=== PATIENT | female | born 1990 | race African-American/Black ===

== ENCOUNTER 2025-03-30 16:33 | Emergency (ER) | payer OTHER, SELFPAY ==
[2025-03-30] MEDS ORDERED: KETOROLAC 30 MG/ML INJ ONE (17:27)
[2025-03-30] MEDS ORDERED: NA CHLORIDE 0.9% 1,000 ML ONE (17:27)
[2025-03-30] MEDS ORDERED: ONDANSETRON 4 MG/2 ML VIAL ONE (17:27)
[2025-03-30 18:14] LABS: Specific Gravity 1.013 (1.005-1.030); Sqamous Epithelial <5 /HPF (None Seen); Urine Bacteria 20-50 /HPF (<20); Urine Bilirubin NEGATIVE (Negative); Urine Blood 1+ (Negative); Urine Clarity Extremely Turbid (Clear); Urine Color Light-Yellow (Yellow); Urine Crystals Unidentified Few /HPF (None Seen); Urine Culture Reflex Order NOT NEEDED; Urine Glucose NEGATIVE (Negative); Urine Ketones NEGATIVE (Negative); Urine Microscopic Reflex YN ORDER UMIC; Urine Mucus Slight /HPF (None Seen); Urine Nitrite NEGATIVE (Negative); Urine Protein TRACE (Negative); Urine RBC <5 /HPF (None Seen); Urine Urobilinogen Normal (Normal); Urine pH 6.5 (5.0-7.0)
[2025-03-30 18:46] LABS: Absolute Lymphocytes (CBC) 0.3 K/uL (0.7-4.9); Absolute Monocytes 0.3 K/uL (0.1-1.3); Absolute Neutrophil 11.7 K/uL (1.8-8.0); Basophils % 0.1 % (0-1.3); Eosinophils % 0.1 % (0-4.4); Hematocrit 28.8 % (36.0-45.0); Hemoglobin 9.7 g/dL (12.0-15.0); Lymphocytes % 2.7 % (15.3-44.8); MCH 26.1 pg (27.0-35.0); MCHC 33.7 g/dL (32.0-36.0); MCV 77.6 fL (80-100); MPV 8.6 fL (7.6-11.3); Monocytes % 2.5 % (3.3-12.3); Neutrophils % 94.6 % (41.7-73.7); Platelets 293 thou/uL (152-406); RBC Red Blood Cell Count 3.71 M/uL (3.86-4.86); Red Cell Distribution Width 16.7 % (12.1-15.2)
[2025-03-30 19:05] LABS: Albumin 3.3 g/dL (3.4-5.0); Albumin/Globulin Ratio 1.1 (1.1-1.8); Anion Gap 13.2 mEq/L (5.0-15.0); Bilirubin Total 0.6 mg/dL (0.2-1.0); Globulin 2.9 g/dL (2.3-3.5); Potassium 3.2 mEq/L (3.5-5.1); Protein, Total 6.2 g/dL (6.4-8.2)
[2025-03-30 19:49] LABS: Blood Morphology Comment NOT SEEN (NOT SEEN); Platelet Estimate ADEQ; White Blood Cell Scan OK (OK)
--- NOTE | 2025-03-30 20:39 | ER ---
Nurse's Notes [facility] Name: Analia Rhodes Age: 34 yrs Sex: Female : 1990 Arrival Date: 03/30/2025 Time: 16:33 Bed 10 Private MD: Diagnosis: UTI/ Urinary tract infection, site not specified Presentation: 03/30 16:45 Chief complaint: Patient states: low back pain started today. Coronavirus screen: kj2 Client denies travel out of the [place] in the last 14 days. Ebola Screen: No symptoms or risks identified at this time. Initial Sepsis Screen: Does the patient meet any 2 criteria? No. Patient's initial sepsis screen is negative. Does the patient have a suspected source of infection? No. Patient's initial sepsis screen is negative. Risk Assessment: Do you want to hurt yourself or someone else? Patient reports no desire to harm self or others. Onset of symptoms was March 30, 2025. 16:45 Method Of Arrival: Ambulatory [facility] 16:45 Acuity: LEANN 3 kj2 Triage Assessment: 16:45 General: Appears in no apparent distress. Behavior is cooperative. 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 - Infectious Disease History:: Denies. - Social history:: Smoking status: unknown. Screenin:45 [facility] ED Fall Risk Assessment (Adult) History of falling in the last 3 months, kj2 including since admission No falls in past 3 months (0 pts) Confusion or Disorientation No (0 pts) Intoxicated or Sedated No (0 pts) Impaired Gait No (0 pts) Mobility Assist Device Used No (0 pt) Altered Elimination No (0 pt) Score/Fall Risk Level 0 - 2 = Low Risk Maintained a safe environment, Hourly rounding (assess needs \T\ fall precautionary measures) done. Abuse screen: Denies threats or abuse. Denies injuries from another. Nutritional screening: No deficits noted. Tuberculosis screening: No symptoms or risk factors identified. Assessment: 16:45 General: see triage assessment. Pain: Complains of pain in low back Pain currently is 8 kj2 out of 10 on a pain scale. Neuro: Level of Consciousness is awake, alert, obeys commands, Oriented to person, place, time, situation. Cardiovascular: Patient's skin is warm and dry. Respiratory: Airway is patent Respiratory effort is even, unlabored. GI: No signs and/or symptoms were reported involving the gastrointestinal system. : No signs and/or symptoms were reported regarding the genitourinary system. 17:45 Reassessment: Patient appears in no apparent distress at this time. Patient and/or kj2 family updated on plan of care and expected duration. Pain level reassessed. Patient is alert, oriented x 3, equal unlabored respirations, skin warm/dry/pink. 18:45 Reassessment: Patient appears in no apparent distress at this time. Patient and/or kj2 family updated on plan of care and expected duration. Pain level reassessed. Patient is alert, oriented x 3, equal unlabored respirations, skin warm/dry/pink. 19:45 Reassessment: Patient appears in no apparent distress at this time. Patient and/or kj2 family updated on plan of care and expected duration. Pain level reassessed. Patient is alert, oriented x 3, equal unlabored respirations, skin warm/dry/pink. 20:45 Reassessment: Patient appears in no apparent distress at this time. Patient and/or kj2 family updated on plan of care and expected duration. Pain level reassessed. Patient is alert, oriented x 3, equal unlabored respirations, skin warm/dry/pink. Vital Signs: 16:45 BP 124 / 107; Pulse 118; Resp 20; Temp 98.2; Pulse Ox 100% ; Weight 68.04 kg; Height 5 kj2 ft. 8 in. ; 17:45 BP 100 / 70; Pulse 112; Resp 20; Pulse Ox 100% ; kj2 18:45 BP 98 / 69; Pulse 98; Resp 20; Temp 98; Pulse Ox 100% on R/A; kj2 20:45 BP 100 / 73; Pulse 100; Resp 20; Temp 98.4; Pulse Ox 100% ; kj2 16:45 Body Mass Index 22.81 (68.04 kg, 172.72 cm) kj2 ED Course: 16:35 Patient arrived in ED. sb4 16:35 [facility] Pick[facility] sb4 16:35 Maynor Matthews DO is Attending Physician. sb4 16:45 Arm band placed on Patient placed in an exam room. kj2 16:45 Patient has correct armband on for positive identification. Bed in low position. Call kj2 light in reach. Adult w/ patient. Provided Education on: call light. 17:07 Mary Jo Flynn, RN is Primary Nurse. kj2 17:15 Radiology exam delayed due to lab results not completed at this time. (BUN/Creatinine) nj IV insertion attempt and/or patient not having appropriate IV at this time. 17:15 Radiology exam delayed due to test not completed at this time. nj 17:54 Missed attempt(s): 20 gauge in left antecubital area. kj2 18:05 Inserted saline lock: 22 gauge in right forearm, using aseptic technique. kj2 18:33 Triage completed. kj2 19:15 CT Abd/Pelvis - IV Contrast Only In Process Unspecified. EDMS 20:55 No provider procedures requiring assistance completed. kj2 20:59 IV discontinued, intact, bleeding controlled, No redness/swelling at site. Pressure kj2 dressing applied. Administered Medications: 18:14 Drug: NS 0.9% IV 1000 ml IV at 1 bolus Per protocol; to be given as a bolus over 60 kj2 minutes Route: IV; Rate: 1 bolus; Site: right forearm; 18:15 Drug: TORadol - Ketorolac IVP 15 mg IVP once Route: IVP; Site: right forearm; kj2 18:44 Follow up: Response: No adverse reaction kj2 18:15 Drug: Ondansetron IVP 4 mg IVP once; over 2 minutes Route: IVP; Site: right forearm; kj2 18:44 Follow up: Response: No adverse reaction kj2 20:41 Not Given (Physician Discretion): ns 0.9% 1000 ml IV at 1000 ml once; to be given as a sb4 bolus over 60 minutes 20:53 Drug: Rocephin IV 1 grams IV at calculated rate once; Given slow IV push per pharmacy kj2 instructions Route: IV; Rate: calculated rate; Site: right forearm; 20:56 Follow up: IV Status: Completed infusion; IV Intake: 10ml kj2 20:53 Drug: Potassium PO Effervescent Tablet 50 mEq PO once; dissolve in 4 ounces of water or kj2 juice Route: PO; 20:55 Follow up: Response: No adverse reaction kj2 Medication: 16:45 VIS not applicable for this client. kj2 Intake: 20:56 IV: 10ml; Total: 10ml. kj2 Outcome: 20:38 Discharge ordered by . [email or web address] 20:58 Discharged to home ambulatory, kj2 20:58 Condition: stable 20:58 Discharge instructions given to patient, Instructed on discharge instructions, follow up and referral plans. Demonstrated understanding of instructions, follow-up care, 21:19 Patient left the ED. kj2 Signatures: Dispatcher [employer] EDMS Charli Flynn Sophia, PA-C PA-C [email or web address] Mary Jo Flynn, RN RN kj2
--- NOTE | 2025-03-30 20:39 | EDPHYS ---
Physician Documentation [facility] Name: Analia Rhodes Age: 34 yrs Sex: Female : 1990 Arrival Date: 03/30/2025 Time: 16:33 Bed 10 Private MD: ED Physician Maynor Matthews HPI: 03/30 17:57 This 34 yrs old Black Female presents to ER via Unassigned with complaints of Anxiety, sb4 Flank Pain. 18:01 patient reports right sided flank pain that began earlier today while at work. denies sb4 any injury. states the pain triggered a panic attack. additionally, she states that she has had strong smelling urine and some pressure with urinating. denies any blood in the urine or history of kidney stones. states she has been experiencing body aches and feeling warm, but no reported fever, nausea, vomiting, or diarrhea. 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 - Infectious Disease History:: Denies. - Social history:: Smoking status: unknown. ROS: 18:01 Respiratory: Negative for shortness of breath, cough, wheezing, and pleuritic chest sb4 pain, 18:01 Constitutional: Positive for body aches, 18:01 Abdomen/GI: Positive for nausea, 18:01 : Positive for difficulty urinating, foul smelling urine, 18:01 Psych: Positive for anxiety, 18:01 All other systems are negative, Exam: 18:01 Head/Face: Normocephalic, atraumatic. Eyes: Extra-ocular motions intact. Periorbital sb4 areas with no swelling, redness, or edema. ENT: Mucous membranes moist. Cardiovascular: Regular rate and rhythm with a normal S1 and S2. Respiratory: No increased work of breathing, no retractions or nasal flaring. Abdomen/GI: Soft, non-tender, no distension. Skin: Warm, dry with normal turgor. Normal color with no rashes, no lesions, and no evidence of cellulitis. 18:01 Constitutional: The patient appears in no acute distress, alert, awake, 18:01 Back: CVA tenderness, that is mild, is noted on the right, Vital Signs: 16:45 BP 124 / 107; Pulse 118; Resp 20; Temp 98.2; Pulse Ox 100% ; Weight 68.04 kg; Height 5 kj2 ft. 8 in. ; 17:45 BP 100 / 70; Pulse 112; Resp 20; Pulse Ox 100% ; kj2 18:45 BP 98 / 69; Pulse 98; Resp 20; Temp 98; Pulse Ox 100% on R/A; kj2 20:45 BP 100 / 73; Pulse 100; Resp 20; Temp 98.4; Pulse Ox 100% ; kj2 16:45 Body Mass Index 22.81 (68.04 kg, 172.72 cm) kj2 MDM: 16:35 Medical Screening Exam initiated sb4 18:05 Differential diagnosis: UTI, pyelonephritis, nephrolithiasis, muscle strain, anxiety. sb4 20:38 Data reviewed: vital signs, nurses notes, EMS record, lab test result(s), radiologic sb4 studies, and as a result, I will discharge patient. Counseling: I had a detailed discussion with the patient and/or guardian regarding the historical points, exam findings, and any diagnostic results supporting the discharge/admit diagnosis, lab results, radiology results, the need for outpatient follow up, for definitive care, to return to the emergency department if symptoms worsen or persist or if there are any questions or concerns that arise at home. 03/30 17:02 Order name: CBC with Diff; Complete Time: 19:50 4 03/30 17:02 Order name: CMP; Complete Time: 19:07 [facility] 03/30 17:02 Order name: Test, Urine; Complete Time: 18:16 sb4 03/30 17:02 Order name: UA Rfx Darrick Cult if indicated; Complete Time: 18:16 [facility] 03/30 18:50 Order name: CBC Smear Scan; Complete Time: 19:50 EDOR 03/30 19:50 Order name: Blood Culture Adult (2) [facility] 03/30 19:50 Order name: Lactate w/ 2H reflex if indic.; Complete Time: 20:55 [facility] 03/30 17:02 Order name: CT Abd/Pelvis - IV Contrast Only sb 03/30 17:02 Order name: IV Saline Lock; Complete Time: 18:05 [facility] 03/30 17:02 Order name: Labs collected and sent; Complete Time: 17:54 sb 03/30 18:08 Order name: Labs - recollect needed: recollect green and lav both hemolyzed; Complete eb Time: 18:44 Administered Medications: 18:14 Drug: NS 0.9% IV 1000 ml IV at 1 bolus Per protocol; to be given as a bolus over 60 kj2 minutes Route: IV; Rate: 1 bolus; Site: right forearm; 18:15 Drug: TORadol - Ketorolac IVP 15 mg IVP once Route: IVP; Site: right forearm; kj2 18:44 Follow up: Response: No adverse reaction kj2 18:15 Drug: Ondansetron IVP 4 mg IVP once; over 2 minutes Route: IVP; Site: right forearm; kj2 18:44 Follow up: Response: No adverse reaction kj2 20:41 Not Given (Physician Discretion): ns 0.9% 1000 ml IV at 1000 ml once; to be given as a sb4 bolus over 60 minutes 20:53 Drug: Rocephin IV 1 grams IV at calculated rate once; Given slow IV push per pharmacy kj2 instructions Route: IV; Rate: calculated rate; Site: right forearm; 20:56 Follow up: IV Status: Completed infusion; IV Intake: 10ml kj2 20:53 Drug: Potassium PO Effervescent Tablet 50 mEq PO once; dissolve in 4 ounces of water or kj2 juice Route: PO; 20:55 Follow up: Response: No adverse reaction kj2 Disposition: 21:08 I was immediately available on-site in the Emergency Department for consultation in the ms3 care of the patient. Disposition Summary: 03/30/25 20:38 Discharge Ordered Notes: Location: Home sb4 Problem: new sb4 Symptoms: have improved sb4 Condition: Stable sb4 Diagnosis - UTI/ Urinary tract infection, site not specified sb4 Followup: sb4 - With: Emergency Department - When: As needed - Reason: Fever > 102 F, Worsening of condition Discharge Instructions: - Discharge Summary Sheet sb4 - Urinary Tract Infection, Adult, [id number] sb4 Forms: - Antibiotic Education sb4 - Patient Portal Instructions sb4 - Leadership Thank You Letter sb4 Prescriptions: - cefpodoxime 100 mg Oral Tablet - take 1 tablet ORAL route every 12 hours for 10 days take with food; 20 tablet; sb4 Refills: 0, Product Selection Permitted Signatures: Dispatcher [employer] EDMS Megan Lo Marcus, DO DO ms3 Brianne Pickering PA-C PA-C sb4 Mary Jo Flynn, RN RN kj2 Corrections: (The following items were deleted from the chart) 17: 17:02 CBC+H.LAB.BRZ ordered. EDMS EDMS 17: 17:02 COMPREHENSIVE METABOLIC PANEL+C.LAB.BRZ ordered. EDMS EDMS 17: 17:02 Test, Urine+UC.LAB.BRZ ordered. EDMS EDMS 17: 17:02 Abdomen Pelvis W Con+CT.RAD.BRZ ordered. EDMS EDMS
[2025-03-30] MEDS ORDERED: CEFTRIAXONE 1000 MG/VIAL ONE (20:46)
[2025-03-30] MEDS ORDERED: POTASSIUM 25 MEQ EFFERV TAB ONE (20:46)
[2025-03-30 21:23] VITALS: O2SAT 100
[2025-03-30 21:28] VITALS: BP 100/73; TEMP 98.4
--- NOTE | 2025-03-30 22:08 | RAD REPORT ---
CLINICAL INDICATION: FLANK PAIN TECHNIQUE: CT abdomen and pelvis was performed, after the administration of IV contrast, as per [facility] protocol. Axial, sagittal and coronal reconstructions were obtained. One or more of the following dose reduction techniques were used: Automated exposure control, adjustment of the mA and k V according to patient size, and iterative reconstruction. Unless otherwise specified, incidental findings do not require dedicated imaging follow-up. COMPARISON: No prior exam. FINDINGS: LOWER CHEST: The visualized lung bases are clear. LIVER: Mild periportal edema in the liver is possible.. Small hypodensity in the right lobe liver donell sures 4 mm, likely benign. Grossly unremarkable gallbladder. No pathologic biliary dilatation. SPLEEN: Normal size. No focal lesion. PANCREAS: No mass, ductal dilation, or sergio-pancreatic fluid. ADRENALS: Normal; no mass. KIDNEYS: There is mild thickened appearance to the right sided uroepithelium which can be seen in the ascending urinary tract infection. No hydronephrosis of either kidney. No definitive pyelonephritis finding by CT. GASTROINTESTINAL TRACT: No evidence of free air, significant intra-abdominal free fluid, bowel obstru ction or abscess. Moderate stool is present throughout the colon. APPENDIX: Appendix not visualized, but no inflammatory changes in region of appendix. LYMPH NODES: No lymphadenopathy. MUSCULOSKELETAL: No acute or suspicious osseous abnormality. ADDITIONAL FINDINGS: There is fluid present in the endometrial canal. Mild pelvic free fluid. Mild ur inary bladder wall thickening. IMPRESSION: Findings raises the possibility of cystitis with ascending urinary tract infection. Suggest correlati on with urinalysis. Mild pelvic free fluid is present, nonspecific. Electronically signed by: Yohannes Roy MD 03/30/2025 07:40 PM T Due to temporary technical issues with the PACS/DTVCast reporting system, reports are being philomena d by the in-house radiologist without review as a courtesy to ensure prompt reporting the interpreting radiologist is fully responsible for the content of the report. Transcribed Date/Time: 03/30/2025 10:07 PM
== END 2025-03-30 21:19 | disposition home or self-care (01) ==
LOC: ER 16:33
DX: N39.0 Urinary tract infection, site not specified (principal)
CPT/HCPCS: 36415; 74177; 80053; 81001; 81025; 83605; 85025; 87040; 87205; 96374; 96375; 99284; J0696; J2405; J7030; Q9967